=== PATIENT | female | born 1995 | race Caucasian/White ===

== ENCOUNTER 2021-06-04 04:47 | Emergency (ER) | payer OTHER, MEDICAID ==
[~2021-06-04] VITALS: Ht 170.2 cm; Wt 110.2 kg
[2021-06-04 04:47] VITALS: BP_SYST 133
--- NOTE | 2021-06-04 04:47 | NUR ---
Pt placed to ER waiting room in stable condition.
--- NOTE | 2021-06-04 04:47 | NUR ---
Lakhwinder gibbs in [facility] - 06/04/21 at 0522 by [email or web address] Pt placed to ER waiting room in stable condition.
--- NOTE | 2021-06-04 05:23 | NUR ---
Pt placed to ER bed 04. Report given to LALITA Laughlin.
[2021-06-04] MEDS ORDERED: DEXAMETHASONE SOD PHOSPHATE 10 MG/ML VIAL ONE (05:37)
--- NOTE | 2021-06-04 05:41 | NUR ---
X4 DAYS SORE THROAT WITH REDNESS AND SWELLING , PT VERBAL AND COOPERATIVE. NO RESP DISTRESS AND NO C/O CP, NO SKIN ISSUES. PT HAD A SLIGHT COUGH BEFORE. PT CAN EAT AND DRINK, THROAT SWAB OBTAINED AND SENT TO THE LAB
[2021-06-04] MEDS ORDERED: DEXAMETHASONE SOD PHOSPHATE 10 MG/ML VIAL PO ONE (05:45)
--- NOTE | 2021-06-04 06:03 | NUR ---
PT INFORMED OF DISCHARGE, PROVIDED WITH [facility] INSTRUCTIONS. PT ENCOUARGED TO FOLLOW UP WITH [employer]PERATOR IN THREE DAYS. PT ADVISED TO GARGLE WITH SALTWATER. ALL QUESTIONS ANSWERED. PT VERBALIZED UNDERSTANDING. PT DISCHARGED WITH ALL BELONGINGS, AMBULATORY IN STABLE CONDITION.
== END 2021-06-04 06:07 | disposition home or self-care (01) ==
LOC: SED 04:47
DX: J02.9 Acute pharyngitis, unspecified (principal)
CPT/HCPCS: 87081; 99283; J1100

== ENCOUNTER 2022-07-21 13:38 | Emergency (ER) | payer MEDICAID, OTHER ==
[~2022-07-21] VITALS: Ht 170.2 cm; Wt 122.5 kg
[~2022-07-21 13:38] MED LIST: CIPR7.5D OT
[2022-07-21 13:39] VITALS: BP_SYST 108
--- NOTE | 2022-07-21 13:40 | NUR ---
Patient triaged and placed in waiting room. VSS and patient appears in no acute distress at this time. Accompanied by SELF, awaiting available bed, and MD notified of need for MSE.
--- NOTE | 2022-07-21 14:16 | NUR ---
BROUGHT BACK TO BED #8 AND REPORT GIVEN TO VALENCIA
--- NOTE | 2022-07-21 14:20 | NUR ---
Pt brought by self, A&Ox4, pt presents to ER with epigastric pain and L upper abdominal pain and constipation x 2 days, skin pink and warm, cap refill <3, no N/V at this time, will cont to monitor.
[2022-07-21] MEDS ORDERED: MAG HYDROX/AL HYDROX/SIMETH 30 ML, DICYCLOMINE HCL 20 MG, LIDOCAINE VISCOUS 2% 15ML (PO... PO ONE ×3 (14:30)
--- NOTE | 2022-07-21 14:40 | NUR ---
Dr Noble evaluating patient at bedside
[2022-07-21 14:55] LABS: BILIRUBIN,URINE 1+ (NEGATIVE); BLOOD, URINE 1+ (NEGATIVE); COLOR,URINE YELLOW (YELLOW); GLUCOSE,URINE NEGATIVE (NEGATIVE); KETONES,URINE 1+ (NEGATIVE); LEUKOCYTE ESTERASE ,URINE NEGATIVE (NEGATIVE); NITRITE, URINE POSITIVE (NEGATIVE); PROTEIN URINE 1+ (NEGATIVE); UROBILINOGEN,URINE 0.2 (0.2-1.0)
[2022-07-21 15:02] LABS: CLARITY/URINE SLIGHTLY HAZY (CLEAR)
[2022-07-21 15:12] LABS: BASOPHILS % (AUTO) 0.2 % (0.0-2.0); EOSINOPHILS # (AUTO) 0.2 K/uL (0.0-0.4); EOSINOPHILS % (AUTO) 1.8 % (0.0-4.0); HEMATOCRIT 32.6 % (36-48); HEMOGLOBIN 10.4 g/dL (12.0-16.0); LYMPHOCYTES # (AUTO) 1.3 K/uL (1.0-5.5); LYMPHOCYTES % (AUTO) 13.5 % (20.5-51.5); MEAN CORPUSCULAR HEMOGLOBIN 23 pg (27-31); MEAN CORPUSCULAR HGB CONC 32 % (32-36); MEAN CORPUSCULAR VOLUME 71 fL (79.0-98.0); MONOCYTES # (AUTO) 0.9 K/uL (0.0-1.0); MONOCYTES % (AUTO) 9.5 % (1.7-9.3); PLATELET COUNT (AUTO) 206 K/uL (130-430); RED BLOOD CELL COUNT(AUTO) 4.56 MIL/uL (4.2-6.2); RED CELL DISTRIBUTION WIDTH 16.8 % (9.0-15.0); WHITE BLOOD COUNT (AUTO) 9.3 K/uL (4.8-10.8)
[2022-07-21 15:23] LABS: CALCIUM 8.3 mg/dL (8.4-11.0); CREATININE 0.7 mg/dL (0.55-1.30)
[2022-07-21 15:27] LABS: BACTERIA,URINE FEW /HPF (None Seen); MUCUS,URINE 1+ /LPF (None Seen); RBC,URINE NONE SEEN /HPF (0-3)
[2022-07-21 15:27] LABS: ALBUMIN 3.4 g/dL (3.4-4.8); TOTAL BILIRUBIN 0.5 mg/dL (0.0-1.0)
[2022-07-21] MEDS ORDERED: KETOROLAC TROMETHAMINE 60 MG/2 ML VIAL IM ONE (16:15)
[2022-07-21] MEDS ORDERED: PRO40 PO ×2 (16:17→16:49)
[2022-07-21] MEDS ORDERED: ACET-2634 PO ×2 (16:17→16:49)
[2022-07-21] MEDS ORDERED: CIPR500T5 PO ×2 (16:17→16:49)
[2022-07-21 16:58] VITALS: BP_SYST 108
--- NOTE | 2022-07-21 16:58 | NUR ---
Patient given written and verbal discharge instructions and verbalizes understanding. ER MD discussed with patient the results and treatment provided. Patient in stable condition. ID arm band removed. Rx of Cipro and Protonix given. Patient educated on pain management and to follow up with PMD. Pain Scale 0/10 . Opportunity for questions provided and answered. Medication side effect fact sheet provided.
== END 2022-07-21 16:58 | disposition home or self-care (01) ==
LOC: SED 13:38
DX: N39.0 Urinary tract infection, site not specified (principal); K29.70 Gastritis, unspecified, without bleeding; R10.13 Epigastric pain; R11.0 Nausea; R10.11 Right upper quadrant pain; Z79.899 Other long term (current) drug therapy
CPT/HCPCS: 99285; 76700; 80053; 81000; 83690; 85025; 36415; 81025; 96372; J2001; J1885

== ENCOUNTER 2022-09-18 12:19 | Emergency (ER) | payer MEDICAID ==
[~2022-09-18] VITALS: Ht 170.2 cm; Wt 122.5 kg
[~2022-09-18 12:19] MED LIST changes: +ACET-2634 PO; +CIPR500T5 PO; +PRO40 PO
[2022-09-18 12:46] VITALS: BP_SYST 112; PULSE 110; RESP 19; TEMP 97.2; O2SAT 96
[2022-09-18 13:50] LABS: BASOPHILS % (AUTO) 0.4 % (0.0-2.0); EOSINOPHILS # (AUTO) 0.1 K/uL (0.0-0.4); EOSINOPHILS % (AUTO) 1.5 % (0.0-4.0); HEMATOCRIT 30.9 % (36-48); HEMOGLOBIN 9.7 g/dL (12.0-16.0); LYMPHOCYTES # (AUTO) 1.9 K/uL (1.0-5.5); LYMPHOCYTES % (AUTO) 25.5 % (20.5-51.5); MEAN CORPUSCULAR HEMOGLOBIN 22 pg (27-31); MEAN CORPUSCULAR HGB CONC 31 % (32-36); MEAN CORPUSCULAR VOLUME 71 fL (79.0-98.0); MONOCYTES # (AUTO) 0.5 K/uL (0.0-1.0); MONOCYTES % (AUTO) 6.6 % (1.7-9.3); NEUTROPHILS # (AUTO) 4.9 K/uL (1.8-7.7); PLATELET COUNT (AUTO) 290 K/uL (130-430); RED BLOOD CELL COUNT(AUTO) 4.36 MIL/uL (4.2-6.2); RED CELL DISTRIBUTION WIDTH 16.4 % (9.0-15.0); WHITE BLOOD COUNT (AUTO) 7.4 K/uL (4.8-10.8)
[2022-09-18 14:15] LABS: BLOOD, URINE 3+ (NEGATIVE); CLARITY/URINE SL CLOUDY (CLEAR); COLOR,URINE RED (YELLOW); GLUCOSE,URINE NEGATIVE (NEGATIVE); KETONES,URINE 1+ (NEGATIVE); PH,URINE 6.5 (5.0-8.0); PROTEIN URINE 3+ (NEGATIVE)
[2022-09-18 14:15] LABS: PROTHROMBIN TIME 10.5 SECS (9.5-12.5)
[2022-09-18] MEDS ORDERED: KETOROLAC TROMETHAMINE 60 MG/2 ML VIAL IM ONE (14:30)
[2022-09-18 14:40] LABS: BILIRUBIN,URINE NEGATIVE (NEGATIVE); LEUKOCYTE ESTERASE ,URINE NEGATIVE (NEGATIVE); NITRITE, URINE NEGATIVE (NEGATIVE)
[2022-09-18 14:46] LABS: BACTERIA,URINE FEW /HPF (None Seen); RBC,URINE >100 /HPF (0-3); WBC,URINE 0-3 /HPF (0-3)
[2022-09-18 14:47] LABS: MUCUS,URINE None Seen /LPF (None Seen)
[2022-09-18] MEDS ORDERED: MEDR10TA72 PO (16:15)
[2022-09-18] MEDS ORDERED: DICL75TA5 PO (16:15)
[2022-09-18 16:22] VITALS: BP_SYST 112; PULSE 110; RESP 19; TEMP 97.2; O2SAT 96
== END 2022-09-18 16:23 | disposition home or self-care (01) ==
LOC: SED 12:19
DX: N93.8 Other specified abnormal uterine and vaginal bleeding (principal); N83.202 Unspecified ovarian cyst, left side; R10.2 Pelvic and perineal pain; Z79.899 Other long term (current) drug therapy
CPT/HCPCS: 99285; 96374; 76830; 76857; 81000; 84702; 85025; 85610; 85730; 86900; 86901; 36415; 81025; J1885

== ENCOUNTER 2023-09-01 19:54 | Emergency (ER) | payer MEDICAID ==
[~2023-09-01] VITALS: Ht 170.2 cm; Wt 122.5 kg
[~2023-09-01 19:54] MED LIST changes: +DICL75TA5 PO; +MEDR10TA72 PO
[2023-09-01 20:23] VITALS: BP_SYST 139; PULSE 100; RESP 20; TEMP 97.8; O2SAT 96
[2023-09-01 21:30] LABS: BASOPHILS % (AUTO) 0.5 % (0.0-2.0); EOSINOPHILS # (AUTO) 0.1 K/uL (0.0-0.4); EOSINOPHILS % (AUTO) 1.5 % (0.0-4.0); HEMOGLOBIN 9.3 g/dL (12.0-16.0); LYMPHOCYTES # (AUTO) 1.7 K/uL (1.0-5.5); LYMPHOCYTES % (AUTO) 20.4 % (20.5-51.5); MEAN CORPUSCULAR HEMOGLOBIN 19 pg (27-31); MEAN CORPUSCULAR HGB CONC 31 % (32-36); MEAN CORPUSCULAR VOLUME 62 fL (79.0-98.0); MONOCYTES # (AUTO) 0.7 K/uL (0.0-1.0); MONOCYTES % (AUTO) 8.4 % (1.7-9.3); NEUTROPHILS # (AUTO) 5.7 K/uL (1.8-7.7); NEUTROPHILS % (AUTO) 69.2 % (40.0-70.0); PLATELET COUNT (AUTO) 295 K/uL (130-430); RED BLOOD CELL COUNT(AUTO) 4.82 MIL/uL (4.2-6.2); RED CELL DISTRIBUTION WIDTH 18.5 % (9.0-15.0); WHITE BLOOD COUNT (AUTO) 8.2 K/uL (4.8-10.8)
[2023-09-01 21:34] LABS: BILIRUBIN,URINE NEGATIVE (NEGATIVE); BLOOD, URINE NEGATIVE (NEGATIVE); CLARITY/URINE SL CLOUDY (CLEAR); COLOR,URINE YELLOW (YELLOW); GLUCOSE,URINE NEGATIVE (NEGATIVE); KETONES,URINE NEGATIVE (NEGATIVE); LEUKOCYTE ESTERASE ,URINE NEGATIVE (NEGATIVE); NITRITE, URINE NEGATIVE (NEGATIVE); PH,URINE 7.5 (5.0-8.0); PROTEIN URINE NEGATIVE (NEGATIVE); UROBILINOGEN,URINE 0.2 (0.2-1.0)
[2023-09-01 21:36] LABS: ALBUMIN 3.6 g/dL (3.4-4.8); CALCIUM 8.6 mg/dL (8.4-11.0); CREATININE 0.81 mg/dL (0.55-1.30); POTASSIUM 3.6 mmol/L (3.5-5.1); TOTAL BILIRUBIN 0.4 mg/dL (0.0-1.0); TOTAL PROTEIN, SERUM 7.9 g/dL (6.4-8.3)
[2023-09-01 21:52] LABS: BACTERIA,URINE MODERATE /HPF (None Seen)
[2023-09-01 23:34] LABS: ANISOCYTOSIS 1+; HYPOCHROMASIA 3+; OVALOCYTES MODERATE; STOMATOCYTES MODERATE
[2023-09-02] MEDS: HYDROcodone/ACETAMIN 5-325 MG TAB (NORCO/ VICODIN) PO ONE (00:13)
[2023-09-02] MEDS: MORPHINE 4 MG INJ. 4 MG/ML VIAL IVP ONE (01:10)
[2023-09-02] MEDS: NACL 0.9% 1,000 ML IV ONE (01:10)
[2023-09-02] MEDS: KETOROLAC TROMETHAMINE 60 MG/2 ML VIAL IM ONE (01:16)
[2023-09-02 02:46] VITALS: BP_SYST 139; PULSE 100; RESP 20; TEMP 97.8; O2SAT 96
[2023-09-02] MEDS ORDERED: LACT10SO6 PO (02:51)
== END 2023-09-02 02:45 | disposition home or self-care (01) ==
LOC: SED 19:54
DX: N83.201 Unspecified ovarian cyst, right side (principal); R10.9 Unspecified abdominal pain; R11.0 Nausea; Z79.899 Other long term (current) drug therapy; Z79.2 Long term (current) use of antibiotics
CPT/HCPCS: 99285; 74176; 80053; 81001; 85025; 87086; 36415; 81025; 96372; J1885; 81000; 81015

== ENCOUNTER 2023-09-15 02:25 | Emergency (ER) | payer MEDICAID ==
[~2023-09-15] VITALS: Ht 170.2 cm; Wt 122.5 kg
[~2023-09-15 02:25] MED LIST changes: +LACT10SO6 PO
[2023-09-15 02:38] VITALS: BP_SYST 128; PULSE 100; RESP 24; TEMP 96.9; O2SAT 97
[2023-09-15] MEDS: MORPHINE 4 MG INJ. 4 MG/ML VIAL IVP ONE (03:15)
[2023-09-15 04:07] LABS: BILIRUBIN,URINE NEGATIVE (NEGATIVE); COLOR,URINE YELLOW (YELLOW); GLUCOSE,URINE NEGATIVE (NEGATIVE); KETONES,URINE NEGATIVE (NEGATIVE); LEUKOCYTE ESTERASE ,URINE NEGATIVE (NEGATIVE); NITRITE, URINE NEGATIVE (NEGATIVE); PROTEIN URINE 1+ (NEGATIVE); UROBILINOGEN,URINE 0.2 (0.2-1.0)
[2023-09-15 04:53] LABS: BASOPHILS % (AUTO) 0.5 % (0.0-2.0); EOSINOPHILS # (AUTO) 0.1 K/uL (0.0-0.4); EOSINOPHILS % (AUTO) 2.1 % (0.0-4.0); HEMATOCRIT 26.6 % (36-48); HEMOGLOBIN 8.1 g/dL (12.0-16.0); LYMPHOCYTES # (AUTO) 1.4 K/uL (1.0-5.5); LYMPHOCYTES % (AUTO) 24.1 % (20.5-51.5); MEAN CORPUSCULAR HEMOGLOBIN 19 pg (27-31); MEAN CORPUSCULAR HGB CONC 31 % (32-36); MEAN CORPUSCULAR VOLUME 63 fL (79.0-98.0); MONOCYTES # (AUTO) 0.4 K/uL (0.0-1.0); MONOCYTES % (AUTO) 6.8 % (1.7-9.3); NEUTROPHILS # (AUTO) 3.9 K/uL (1.8-7.7); NEUTROPHILS % (AUTO) 66.5 % (40.0-70.0); PLATELET COUNT (AUTO) 252 K/uL (130-430); RED CELL DISTRIBUTION WIDTH 18.8 % (9.0-15.0); WHITE BLOOD COUNT (AUTO) 5.9 K/uL (4.8-10.8)
[2023-09-15 05:20] LABS: CLARITY/URINE HAZY (CLEAR)
[2023-09-15 05:21] LABS: BLOOD, URINE 1+ (NEGATIVE); WBC,URINE 0-3 /HPF (0-3)
[2023-09-15 05:22] LABS: BACTERIA,URINE None Seen /HPF (None Seen); CALCIUM OXALATE CRYSTALS,UR 70-100 /HPF (None Seen)
[2023-09-15 05:27] LABS: CALCIUM 8.8 mg/dL (8.4-11.0); CREATININE 0.56 mg/dL (0.55-1.30); POTASSIUM 4.1 mmol/L (3.5-5.1)
[2023-09-15] MEDS ORDERED: IBUP-1969 PO (07:52)
[2023-09-15] MEDS ORDERED: HYDR-3917 PO (07:52)
[2023-09-15 08:10] VITALS: BP_SYST 115; PULSE 90; RESP 16; TEMP 98.3; O2SAT 96
== END 2023-09-15 08:09 | disposition home or self-care (01) ==
LOC: SED 02:25
DX: N83.201 Unspecified ovarian cyst, right side (principal); R10.9 Unspecified abdominal pain; Z79.899 Other long term (current) drug therapy; Z79.2 Long term (current) use of antibiotics
CPT/HCPCS: 99285; 74177; 96374; 80048; 81001; 85025; 36415; J2270; Q9967; 81000; 81015